=== PATIENT | female | born 1970 | race Caucasian/White ===

== ENCOUNTER 2019-11-15 11:43 | Day surgery (SDC) | payer MEDICARE, MEDICAID ==
[2019-11-14 10:00] LABS: HEMATOCRIT 38.7 % (36.0-47.0); HEMOGLOBIN 13.3 g/dL (12.0-15.5); MEAN CORPUSCULAR HEMOGLOBIN 32.1 pg (27.0-33.4); MEAN CORPUSCULAR HGB CONC 34.4 g/dL (32.0-36.0); MEAN CORPUSCULAR VOLUME 93 fl (80-97); PLATELET COUNT 355 10^3/uL (150-450); RED BLOOD COUNT 4.15 10^6/uL (3.72-5.28); RED CELL DISTRIBUTION WIDTH 12.5 % (11.5-14.0); WHITE BLOOD COUNT 9.2 10^3/uL (4.0-10.5)
[~2019-11-15 11:43] MED LIST: ACETAMINOPHEN 325 MG TABLET PO PRN; CEFAZOLIN SODIUM 2 GM in DEXTROSE 5%-WATER 100 ML IV PRN; LACTATED RINGERS 1000 ML IV PRN; LIDOCAINE 0.5% INJ-PF (5 MG/ML) 50 ML SDV SUBCUT PRN; OXYCODONE HCL SR 10 MG TABLET PO PRN
[2019-11-15] MEDS ORDERED: LIDOCAINE 2% INJ-PF (20 MG/ML) 10 ML AMPUL ONE (14:59)
[2019-11-15] MEDS ORDERED: PROPOFOL INJ 200 MG/20 ML VIAL IV ONE (14:59)
[2019-11-15] MEDS ORDERED: FENTANYL CITRATE INJ/PF 100 MCG/2 ML AMPUL ONE (14:59)
[2019-11-15] MEDS ORDERED: MIDAZOLAM 2 MG/2 ML INJ ONE (14:59)
[2019-11-15] MEDS ORDERED: DEXAMETHASONE SOD PHOSPHATE INJ 4 MG/1 ML VIAL ONE (15:09)
[2019-11-15] MEDS ORDERED: ONDANSETRON HCL INJ/PF 4 MG/2 ML SDV ONE (15:09)
[2019-11-15] MEDS ORDERED: EPINEPHRINE INJ/PF 1 MG/1 ML AMPULE ONE (15:16)
[2019-11-15] MEDS ORDERED: BUPIVACAINE HCL 0.5 % INJ/PF 30 ML SDV ONE (15:16)
[2019-11-15] MEDS ORDERED: TRIAMCINOLONE ACETONIDE INJ 40 MG/1 ML VIAL ONE (15:16)
[2019-11-15] MEDS ORDERED: LIDOCAINE 1% INJ-PF (10 MG/ML) 30 ML SDV ONE (15:16)
[2019-11-15] MEDS ORDERED: KETOROLAC TROMETHAMINE INJ/PF 30 MG/1 ML SDV ONE (15:16)
[2019-11-15] MEDS ORDERED: DIPHENHYDRAMINE HCL 50 MG/ML VIAL IV PRN (16:29)
[2019-11-15] MEDS ORDERED: MEPERIDINE HCL/PF INJ 25 MG/1 ML DISP.SYRIN IV PRN (16:29)
[2019-11-15] MEDS ORDERED: OXYCODONE-ACETAMINOPHEN 5-325 MG TABLET PO PRN ×2 (16:29)
[2019-11-15] MEDS ORDERED: ONDANSETRON HCL INJ/PF 4 MG/2 ML SDV IV PRN (16:29)
[2019-11-15] MEDS ORDERED: FENTANYL CITRATE INJ/PF 100 MCG/2 ML AMPUL IV PRN ×3 (16:29)
[2019-11-15] MEDS ORDERED: PROMETHAZINE HCL INJ 25 MG/1 ML VIAL IV PRN ×2 (16:29)
[2019-11-15] MEDS ORDERED: MEPERIDINE HCL/PF INJ 25 MG/1 ML DISP.SYRIN ONE (16:54)
--- NOTE | 2019-11-15 16:58 | Operative Report ---
Operative Report DATE OF SURGERY: 11/15/19 PREOPERATIVE DIAGNOSIS: Left knee fat pad syndrome, chondromalacia, plica. POSTOPERATIVE DIAGNOSIS: Left knee fat pad syndrome, chondromalacia, plica, loose body. OPERATION: Left knee arthroscopy, movable of loose body, excision of plica, excision of fat pad, chondroplasty SURGEON: MATIAS KAMARA JR ANESTHESIA: GA COMPLICATIONS: None ESTIMATED BLOOD LOSS: 15 cc PROCEDURE: DESCRIPTION OF THE PROCEDURE: The patient was placed supine on the operating room table. After the patient was placed under general anesthesia, and appropriate timeout was performed. The patient was prepped and draped in the usual sterile fashion for arthroscopic surgery. The left lower extremity was then exsanguinated with the use of an Esmarch bandage and the tourniquet was inflated to. The operation commenced with creation of the lateral portal utilizing his prior incision. The arthroscope was directed into the suprapatellar pouch with the knee held in extension. A systematic examination of the left knee was begun arthroscopically. The patellofemoral articulation was visualized and grade 4 changes were apparent on the patella but the trochlea was relatively well- preserved. The medial gutter was entered. No loose bodies were identified. The medial compartment was then entered and the medial portal was established under direct visualization with a spinal needle. The arthroscopic probe was used to inspect the contents of the medial compartment. Full-thickness cartilaginous defects were noted on both the medial femoral condyle as well as the medial tibial plateau. There is no unstable lesion. The medial meniscus was evaluated and found to have prior changes consistent with meniscectomy however there is no unstable portion of the meniscus and no recurrent tear. The notch was then visualized. The anterior cruciate ligament and PCL were found to be intact. The arthroscope was directed into the lateral compartment. There was moderate meniscal fraying without an overt tear of the lateral meniscus. Shaver was utilized to remove the frayed edge of the lateral meniscus. Additionally the f at pad was hypertrophic in thickened, to achieve appropriate visualization a thorough debridement was performed with shaver resection. After removal of the hypertrophic fat pad there was a lateral plica that was in continuity with the IT band and rubbing across the lateral border of the lateral femoral condyle. This was then resected with the suction shaver. Grade 3 arthritic changes were found on the medial aspect of the lateral tibial plateau running from anterior to posterior. This was probed and the cartilage surrounding was found to be stable without delamination. Chondroplasty was performed over this frayed cartilage with a suction shaver. The lateral femoral condyle cartilage was relatively well preserved. On inspection of the meniscus this was found to be grossly intact with any signs of degenerative wear or tear, however there was a large approximately 1.5 cm x 5 mm loose body underneath the posterior horn of the lateral meniscus. This was removed with a grabber in piecemeal fashion to achieve getting it through the portal. The medial and lateral gutters were then evaluated and no loose bodies were found. Large osteophytes were present throughout leading on the inferior aspect of the patella. A mixture of Marcaine, lidocaine and toradol was injected into the right knee. The instruments were then removed. The portals were closed with 4-0 nylon and Xeroform and a light compressive dressing was applied. The tourniquet was deflated. The patient was recovered from his anesthetic and was returned to the recovery room in stable condition. There were no complications.
[2019-11-15] MEDS: FENTANYL CITRATE INJ/PF 100 MCG/2 ML AMPUL ONE ×3 (17:03→17:10)
[2019-11-15] MEDS ORDERED: OXYCODONE-ACETAMINOPHEN 5-325 MG TABLET ONE (17:28)
[2019-11-15] MEDS ORDERED: ACETAMINOPHEN 1,000 MG/100 ML RTUPB IV ONE (17:30)
[2019-11-15 19:47] VITALS: BP 101/59
--- NOTE | 2019-11-17 17:20 | Discharge Summary ---
Discharge Summary (SDC) - Discharge Final Diagnosis: Left knee fat pad syndrome, loose body, osteoarthritis. Date of Surgery: 11/15/19 Discharge Date: 11/17/19 Condition: Good Forms: ASU Anesthesia D/C Instruction, Discharge POC-Surgical Service Treatment or Instructions: Seek care immediately if: * Blood soaks through your bandage. * Your stitches come apart. * Your leg feels numb or cold and looks pale. * Your leg is larger than normal, red and painful. * You cannot move your leg or foot. Contact your healthcare provider if: * You have a fever or chills. * Your wound is red, swollen, or draining pus. * You have nausea or are vomiting. * You have severe pain in your knee even after you take pain medicine. * Your skin is itchy, swollen, or you have a rash. * You have questions or concerns about your condition or care Referrals: MATIAS KAMARA JR, DO [ACTIVE PROVISIONAL STAFF] - Discharge Diet: As Tolerated Respiratory Treatments at Home: Deep Breathing/Coughing Discharge Activity: Activity As Tolerated, No Driving, Keep Legs Elevated, No Lifting/Push/Pulling, No tub bath, Walk Frequently Home Care Assistance: None Needed Report the Following to Your Physician Immediately: Shortness of Breath, Nausea, Vomiting, Increase in Pain, Yellow Skin, Fever over 101 Degrees, Unusual Bleeding, Redness, Swelling, Warmth, Increased Soreness, Drainage-Yellow, Drainage-Branham, Drainage-Green, Drainage-Foul Smelling, Large Clots, Numbness, Tingling Sensation, Visual Disturbance, Wheezing, Seizure, IV Site Infection Signs, Urinary Infection Signs
== END 2019-11-15 19:00 | disposition home or self-care (01) ==
LOC: OROUT 11:43
PROVIDERS: ATTEND Orthopaedic Surgery
DX: M79.4 Hypertrophy of (infrapatellar) fat pad (principal); M94.262 Chondromalacia, left knee; M67.52 Plica syndrome, left knee; M23.42 Loose body in knee, left knee; I10 Essential (primary) hypertension; K50.90 Crohn's disease, unspecified, without complications
CPT/HCPCS: 29876; G0289; 1400; 36415; 81025; 85027; J0131; J0171; J0690; J1100; J1885; J2175; J2250; J2405; J2704; J3010; J3301; J3490; J7060